=== PATIENT | female | born 1970 | race Caucasian/White ===

== ENCOUNTER → 2016-09-14 | Outpatient (CLI) | payer MEDICAID ==
--- NOTE | 2016-09-15 09:40 | MM ---
Reason for exam: screening (asymptomatic). Last mammogram was performed 1 year and 1 month ago. History: Took hormonal contraceptives for 4 years beginning at age 19. Physical Findings: A clinical breast exam by your physician is recommended on an annual basis and results should be correlated with mammographic findings. MG 3D Screening Mammo W/Cad Bilateral CC and MLO view(s) were taken. Prior study comparison: August 15, 2015, bilateral MG 3d screening mammo w/cad. April 18, 2014, bilateral MG diagnostic mammo w CAD ANDREIA. There are scattered fibroglandular densities. There is no discrete abnormality. ASSESSMENT: Negative, BI-RAD 1 RECOMMENDATION: Routine screening mammogram of both breasts in 1 year. Manage patient on a clinical basis. (Breast pain)
== END | disposition home or self-care (01) ==
LOC: RADMAMWWP 06:53
PROVIDERS: ATTEND Obstetrics & Gynecology
DX: Z12.31 Encounter for screening mammogram for malignant neoplasm of breast (principal)
CPT/HCPCS: 77063; G0202

== ENCOUNTER → 2017-06-04 | Outpatient (CLI) | payer MEDICAID ==
--- NOTE | 2017-06-04 11:41 | US ---
EXAMINATION TYPE: US transvaginal DATE OF EXAM: 06/04/2017 COMPARISON: CT abdomen and pelvis September 02, 2013. Pelvic ultrasound December 27, 2012 CLINICAL HISTORY: Pelvic Pain R10.2. Pt states pelvic pain and cramping. h/o ablation 7 yrs. ago TECHNIQUE: Transvaginal (TV). Date of LMP: 7 yrs ago EXAM MEASUREMENTS: Uterus: 7.8 x 3.7 x 5.2 cm Endometrial Stripe: 0.3 cm Right Ovary: 1.8 x 1.3 x 1.3 cm Left Ovary: 2.3 x 1.3 x 1.5 cm 1. Uterus: Anteverted Heterogeneous 2. Endometrium: Ill-defined borders due to ablation, appeared wnl 3. Right Ovary: wnl 4. Left Ovary: Small, echogenic lesion= 0.6 cm 5. Bilateral Adnexa: wnl 6. Posterior cul-de-sac: wnl Heterogeneous uterus is redemonstrated. Endometrium is atrophic with tiny amount of fluid noted in th e endometrial canal at cervical level. No free fluid is seen in pelvic cul-de-sac. Both ovaries are i dentified without suspicious adnexal lesion seen currently. IMPRESSION: No suspicious finding is seen to account for patient's symptoms.
== END ==
LOC: RADUSWWP 08:17
PROVIDERS: ATTEND Obstetrics & Gynecology
DX: R10.2 Pelvic and perineal pain (principal)
CPT/HCPCS: 76830

== ENCOUNTER → 2017-08-27 | Outpatient (CLI) | payer MEDICAID ==
--- NOTE | 2017-08-27 11:10 | MM ---
Reason for exam: clinical finding. Last mammogram was performed 11 months ago. History: Took hormonal contraceptives for 4 years beginning at age 19. Physical Findings: Nurse did not find any significant physical abnormalities on exam. MG 3D Diag Mammo W/Cad ANDREIA Bilateral CC and MLO view(s) were taken. Prior study comparison: September 14, 2016, bilateral MG 3d screening mammo w/cad. August 15, 2015, bilateral MG 3d screening mammo w/cad. There are scattered fibroglandular densities. There are benign appearing stable round oval circumscribed right upper outer quadrant masses. No suspicious abnormality. No significant new findings when compared with previous films. These results were verbally communicated with the patient and result sheet given to the patient on 08/27/17. ASSESSMENT: Benign, BI-RAD 2 RECOMMENDATION: Routine screening mammogram of both breasts in 1 year. Manage on a clinical basis with regard to left breast discomfort.
== END | disposition home or self-care (01) ==
LOC: RADMAMWWP 09:37
PROVIDERS: ATTEND Obstetrics & Gynecology
DX: N63.10 Unspecified lump in the right breast, unspecified quadrant (principal); N63.20 Unspecified lump in the left breast, unspecified quadrant
CPT/HCPCS: 77062; 77066

== ENCOUNTER → 2017-09-09 | Outpatient (CLI) | payer MEDICAID ==
[2017-09-09 14:28] VITALS: BP 126/78; PULSE 87; BMI 32.2
--- NOTE | 2017-09-09 15:00 | P.GSHP ---
History of Present Illness H&P Date: 09/09/17 Chief Complaint: Patient notes of firmness under her left breast The patient is a 47-year-old white female who approximately a month ago noted some nodularity under the left breast. She had a bilateral mammogram performed [id number]. This was felt to be benign with bilateral screening recommended in 1 year. The patient has not had any trauma to her breast. She has no pain in her breast. She has no nipple discharges or skin changes of concern Family History: 1. father: Esophageal cancer 2. Maternal grandmother: Colon cancer Surgical history: 1. Tubal ligation 2. Uterine ablation Medical history: Negative Hormonal history: Menarche: 8 Pregnancies: 2, 2 live births, first at 21, breast fed: yes periods stopped at 40 with uterine ablation hormones: none BCP: 2 years Social history: Smoke: Negative Alcohol: Negative Drugs: Negative - Constitutional Constitutional: Reports sweats - EENT Comment: start of glaucoma, at times difficulty with swallowing, following with DR. Reaves Eyes: denies decreased vision (wears glasses), denies pain Ears: deny: decreased hearing, tinnitus Ears, nose, mouth and throat: Denies headache, Denies sore throat - Cardiovascular Cardiovascular: Denies chest pain, Denies shortness of breath - Respiratory Respiratory: Denies cough, Denies 7 - Gastrointestinal Comment: at times difficulty swallowing Gastrointestinal: Denies abdominal pain, Denies diarrhea, Denies nausea, Denies vomiting - Genitourinary (Female) Genitourinary: Reports kidney stones - Menstruation Comment: no periods since ablation - Genitourinary (Male) Genitourinary: Denies dysuria, Denies hematuria - Musculoskeletal Musculoskeletal: Denies myalgias - Integumentary Comment: Itches under her left breast Integumentary: Reports pruritus, Denies rash - Neurological Neurological: Denies numbness, Denies weakness - Psychiatric Psychiatric: Reports anxiety, Denies depression - Endocrine Endocrine: Denies fatigue, Denies weight change - Hematologic/Lymphatic Comment: none - Allergic/Immunologic Allergic/Immunologic: Reports seasonal allergies Past Medical History Additional Past Medical History / Comment(s): diverticulitis, ovarian cyst History of Any Multi-Drug Resistant Organisms: None Reported Past Surgical History: Tubal Ligation, Uterine Ablation Past Psychological History: No Psychological Hx Reported Smoking Status: Never smoker Past Alcohol Use History: None Reported Past Drug Use History: None Reported Medications and Allergies Home Medications Medication Instructions Recorded Confirmed Type B Infantis/B Ani/B Gordon/B Bifid 1 each PO DAILY 09/01/13 09/09/17 History [Probiotic 4X Caplet] Cholecalciferol [Vitamin D3] 1,000 tab PO DAILY 09/01/13 09/09/17 History traMADol HCl [Ultram] 50 mg PO Q6H PRN #20 tab 09/02/13 09/09/17 Rx ALPRAZolam [Xanax] 0.5 tab PO DIRECTED 09/09/17 09/09/17 History Allergies Allergy/AdvReac Type Severity Reaction Status Date / Time amoxicillin [Amoxicillin] Allergy Rash/Hives Verified 09/01/13 22:10 Surgical - Exam Vital Signs Pulse BP 87 126/78 09/09/17 14:23 09/09/17 14:23 - General well developed, well nourished, no distress - Eyes normal ocular movement, no icteric - ENT no hearing loss, no congestion - Neck no masses, trachea midline - Respiratory normal respiratory effort, clear to auscultation - Cardiovascular Rhythm: regular Heart Sounds: normal: S1, S2 - Abdomen Abdomen: soft, non tender, no guarding, no rigid, no rebound - Integumentary no rash - Neurologic no disoriented, no combative - Musculoskeletal normal gait, normal posture - Psychiatric oriented to time, oriented to person, oriented to place, speech is normal, memory intact Breast examination: Right breast: Multiple positional exam no dominant masses or nodules of concern Right axilla: No adenopathy of concern Left breast: Multiple positional exam fibrocystic changes, an area of increased nodularity approximately 1 x 1 cm in size at the 5 o'clock position of the inferior aspect of the breast, this was not seen on mammogram Left axilla: No adenopathy of concern Results mammogram reviewed Assessment and Plan Assessment: Impression/plan: 1. Bilateral mammogram 87473 BIRADS 2 repeat screening mammogram of both breasts in 1 year 2. Palpable abnormality left breast 5 to 6 o'clock position in the inferior aspect Plan: 1. FNA of palpable abnormality in the left breast 2. Further recommendation following results of the FNA Cc: Dr. Mari, Dr. Reaves
--- NOTE | 2017-09-09 15:05 | P.PCN ---
Date of Procedure: 09/09/17 Preoperative Diagnosis: palpable abnormality Postoperative Diagnosis: same Procedure(s) Performed: FNA left breast lesion at 5 OClock Anesthesia: none Pathology: other Condition: stable Indications for Procedure: Palpable abnormality 5:00 region of the left breast Description of Procedure: The area of concern in the left breast was prepped using alcohol. A 22-gauge needle was passed into the lesion on a 5 mL syringe. Multiple passes were made and tissue was obtained. The contents were processed on a slide which was sent to pathology. The patient tolerated the procedure in stable condition. Depending on results of pathology further recommendation to follow. Cc: Dr. Mari, Dr. Morel
--- NOTE | 2017-09-16 16:13 | P.PN ---
Subjective Progress Note Date: 09/16/17 The patient is a 47-year-old white female who comes in status post FNA of an area of concern in the left breast. The area on FNA is nondiagnostic. It is most likely consistent with a lipoma. I discussed with the patient that the options include an ultrasound of the area with possible ultrasound for biopsy or excision in the operating room. The patient does not wish to undergo ultrasound and a repeat percutaneous biopsy as the area is palpable and she just wishes it to be excised. Physical examination Heart: Regular rate and rhythm Lungs: Clear Breast: Mild ecchymosis at site of FNA, persistent palpable abnormality approximately 1 x 1 cm in size the inferior aspect proximally 5:00 of the left breast this most likely represents a lipomatous lesion Impression/plan: 1. Palpable abnormality left breast 2. FNA nondiagnostic 3. Option of ultrasound-guided core biopsy discussed with the patient which she does not wish at this time 4. Patient wishes excisional biopsy of area of concern in the left breast I discussed that this is most likely benign a lipoma however the patient wishes it to be excised as it is palpable and change in her opinion Risks and benefits of the procedure have been discussed with the patient and she wishes to proceed CC: Jelly Objective - Vital Signs Vital signs: Vital Signs Temp Pulse 87 09/09/17 14:23 Resp BP 126/78 09/09/17 14:23 Pulse Ox
== END | disposition home or self-care (01) ==
LOC: WWCWWP 13:56
PROVIDERS: ATTEND Surgery
DX: N63.20 Unspecified lump in the left breast, unspecified quadrant (principal)
CPT/HCPCS: 88173

== ENCOUNTER → 2017-09-16 | Outpatient (CLI) | payer MEDICAID ==
[2017-09-16 15:54] VITALS: BP 122/84; PULSE 85; TEMP 98; BMI 32.1
== END | disposition home or self-care (01) ==
LOC: WWCWWP 15:15
PROVIDERS: ATTEND Surgery
DX: Z53.9 Procedure and treatment not carried out, unspecified reason (principal)

== ENCOUNTER → 2017-09-27 | Outpatient (CLI) | payer MEDICAID ==
--- NOTE | 2017-09-27 10:43 | FL ---
EXAMINATION TYPE: FL barium swallow DATE OF EXAM: 09/27/2017 CLINICAL HISTORY: Difficulty swallowing liquids and solids for 2 months. Family history of esophageal carcinoma. TECHNIQUE: A double contrast esophagram is performed utilizing air and barium. A total of 1 minute and 55 seconds of fluoroscopic time was utilized during procedure. 41 fluoroscopic images were saved. COMPARISON: None FINDINGS: Just distal to the patient's described globus sensation there is a persistent focal narrowi ng (short segment but smooth bordered) of the upper thoracic esophagus beginning above the level aort ic arch and extending to the level of the aortic arch. This is nonobstructive with no proximal esopha geal dilatation. Otherwise the esophagus has normal motility. There is a small hiatal hernia noted. P ersistent mild vallecular retention of contrast is also seen throughout the exam expelled with a seco nd swallow. No aspiration. No significant gastroesophageal reflux. IMPRESSION: 1. Focal upper thoracic esophageal nonobstructive persistent mild stricture that is short segment but smooth. Although there are no abrupt borders to suggest esophageal mass given this patient's family history of esophageal carcinoma and no gastroesophageal reflux endoscopy is recommended for direct vi sualization. 2. Small hiatal hernia. 3. Persistent mild vallecular retention expelled after a second dry swallow just above the patient's globus sensation.
== END | disposition home or self-care (01) ==
LOC: RADFLWHC 09:32
PROVIDERS: ATTEND Family Medicine
DX: K44.9 Diaphragmatic hernia without obstruction or gangrene (principal); K22.2 Esophageal obstruction; J38.7 Other diseases of larynx; Z88.0 Allergy status to penicillin
CPT/HCPCS: 74220

== ENCOUNTER → 2017-10-08 | Outpatient (CLI) | payer MEDICAID ==
[2017-10-08 08:17] LABS: Basophils # (A) 0.1 k/uL (0-0.2); Basophils % (A) 1 %; Eosinophils # (A) 0.1 k/uL (0-0.7); Eosinophils % (A) 1 %; HCT 42.6 % (34.0-46.0); Lymphocytes # (A) 2.4 k/uL (1.0-4.8); Lymphocytes % (A) 32 %; MCH 27.7 pg (25.0-35.0); MCHC 30.6 g/dL (31.0-37.0); MCV 90.5 fL (80.0-100.0); Mean Platelet Volume 6.3; Monocytes # (A) 0.4 k/uL (0-1.0); Monocytes % (A) 5 %; Neutrophils # (A) 4.4 k/uL (1.3-7.7); Neutrophils % (A) 59 %; Platelet Count 286 k/uL (150-450); RBC 4.71 m/uL (3.80-5.40); WBC 7.4 k/uL (3.8-10.6)
[2017-10-08 08:35] LABS: ALT 31 U/L (9-52); AST 26 U/L (14-36); Albumin 4.3 g/dL (3.5-5.0); Alkaline Phosphatase 64 U/L (38-126); Anion Gap 7 mmol/L; Blood Urea Nitrogen 17 mg/dL (7-17); Calcium 10.2 mg/dL (8.4-10.2); Carbon Dioxide 29 mmol/L (22-30); Chloride 108 mmol/L (98-107); Glucose 92 mg/dL (74-99); Potassium 5.6 mmol/L (3.5-5.1); Sodium 144 mmol/L (137-145); Total Bilirubin 0.6 mg/dL (0.2-1.3); Total Protein 7.4 g/dL (6.3-8.2)
[2017-10-08 08:54] LABS: Cholesterol 183 mg/dL (<200); HDL Cholesterol 62 mg/dL (40-60); LDL Cholesterol,Calculated 105 mg/dL (0-99); Triglycerides 78 mg/dL (<150)
== END | disposition home or self-care (01) ==
LOC: LABWHC1 07:05
PROVIDERS: ATTEND Nurse Practitioner Women's Health
DX: R53.83 Other fatigue (principal); Z83.6 Family history of other diseases of the respiratory system
CPT/HCPCS: 36415; 80053; 80061; 84439; 84443; 85025

== ENCOUNTER → 2018-11-03 | Outpatient (CLI) | payer MEDICAID ==
--- NOTE | 2018-11-04 11:31 | MM ---
Reason for exam: screening (asymptomatic). Last mammogram was performed 1 year and 2 months ago. History: Excisional biopsy of the left breast. Took hormonal contraceptives for 4 years beginning at age 19. Physical Findings: A clinical breast exam by your physician is recommended on an annual basis and results should be correlated with mammographic findings. MG 3D Screening Mammo W/Cad Bilateral CC and MLO view(s) were taken. Prior study comparison: August 27, 2017, bilateral MG 3d diag mammo w/cad ANDREIA. September 14, 2016, bilateral MG 3d screening mammo w/cad. There are scattered fibroglandular densities. There is no discrete abnormality. No significant changes when compared with prior studies. ASSESSMENT: Negative, BI-RAD 1 RECOMMENDATION: Routine screening mammogram of both breasts in 1 year.
--- NOTE | 2018-11-04 18:40 | BD ---
EXAMINATION TYPE: Axial Bone Density DATE OF EXAM: 11/03/2018 COMPARISON: NONE CLINICAL HISTORY: Height: 5 FT 2 3/4 IN Weight: 189 FRAX RISK QUESTIONS: Secondary Osteoporosis: RISK FACTORS HISTORY OF: Active: YES MEDICATIONS: Additional Medications: NONE Additional History: EXAM MEASUREMENTS: Bone mineral densitometry was performed using the [employer] System. Bone mineral density as measured about the Lumbar spine is: ----- L1-L4(G/cm2): 1.336 T Score Values are as follows: ----- L2: 1.0 ----- L3: 1.0 ----- L4: 1.7 ----- L1-L4: 1.3 BASELINE Bone mineral density about the R hip (g/cm2): 0.939 Bone mineral density about the L hip (g/cm2): 0.951 T Score values are as follows: -----R Neck: -0.7 -----L Neck: -0.6 -----R Total: 0.7 -----L Total: 0.7 BASELINE IMPRESSION: Normal (Values between +1 and -1 indicate normal bone mass). Consider repeating this study in 5 year s or sooner if there is some new clinical indication. NOTE: T-SCORE=SD OF THE YOUNG ADULT MEAN.
== END | disposition home or self-care (01) ==
LOC: RADMAMWWP 07:39
PROVIDERS: ATTEND Obstetrics & Gynecology
DX: Z12.31 Encounter for screening mammogram for malignant neoplasm of breast (principal); Z13.820 Encounter for screening for osteoporosis
CPT/HCPCS: 77063; 77067; 77080

== ENCOUNTER → 2019-04-21 | Day surgery (SDC) | payer MEDICAID ==
[2019-04-19 10:25] VITALS: BMI 33.1
[~2019-04-21] MED LIST: LACTATED RINGERS 1,000 ML IV SCH; LIDOCAINE 1% (10MG/ML) FOR IV START INTRADERMA PRN; LIDOCAINE 1% INJ 10MG/ML (20 ML MDV) ONE; PROPOFOL 10 MG/ML 20 ML VIAL IV ONE
[2019-04-21 09:08] VITALS: TEMP 97.1
--- NOTE | 2019-04-21 09:24 | P.GSHP ---
History of Present Illness H&P Date: 04/21/19 Chief Complaint: Colon cancer screening Patient here today for colonoscopy. No colonoscopy previously. Family history of colon cancer in her grandmother. Mother may have had polyps. No bowel related complaints. Past Medical History Additional Past Medical History / Comment(s): diverticulitis, ovarian cyst History of Any Multi-Drug Resistant Organisms: None Reported Past Surgical History: Tubal Ligation, Uterine Ablation Past Anesthesia/Blood Transfusion Reactions: Motion Sickness Smoking Status: Never smoker - Past Family History Father Family Medical History: Cancer Additional Family Medical History / Comment(s): esophageal cancer Mother Family Medical History: No Reported History Additional Family Medical History / Comment(s): maternal grandma colon cancer Medications and Allergies Home Medications Medication Instructions Recorded Confirmed Type Ascorbic Acid/Ascorbate Sodium 250 mg PO DAILY 04/19/19 04/21/19 History [Vitamin C 250 mg Tablet Chew] Cholecalciferol [Vitamin D3 (25 1,000 unit PO DAILY 04/19/19 04/21/19 History Mcg = 1000 Iu)] Allergies Allergy/AdvReac Type Severity Reaction Status Date / Time amoxicillin [Amoxicillin] Allergy Rash/Hives Verified 04/21/19 08:54 Surgical - Exam Vital Signs Temp Pulse Resp BP Pulse Ox 97.1 F L 110 H 16 142/94 97 04/21/19 09:07 04/21/19 09:07 04/21/19 09:07 04/21/19 09:07 04/21/19 09:07 Physical exam: General: Well-developed, well-nourished HEENT: Normocephalic, sclerae nonicteric Abdomen: Nontender, nondistended Extremities: No edema Neuro: Alert and oriented Assessment and Plan (1) Colon cancer screening Narrative/Plan: Will proceed with colonoscopy at this time Current Visit: Yes Status: Acute Code(s): Z12.11 - ENCOUNTER FOR SCREENING FOR MALIGNANT NEOPLASM OF COLON SNOMED Code(s): 103885448
--- NOTE | 2019-04-21 09:44 | P.PCN ---
Date of Procedure: 04/21/19 Procedure(s) Performed: PREOPERATIVE DIAGNOSIS: Colon cancer screening POSTOPERATIVE DIAGNOSIS: Diverticulosis PROCEDURE: Colonoscopy ANESTHESIA: MAC SURGEON: Vic Feliciano M.D. SPECIMENS: none ENDOSCOPIC PROCEDURE: The patient was placed on the endoscopy table in the left decubitus position. The Olympus colonoscope was inserted into the anus and passed under direct visualization to the base of the cecum. The appendiceal orifice was visualized. From that point the scope was slowly withdrawn inspe cting all surfaces carefully. There were no neoplastic inflammatory or polypoid lesions throughout the cecum, ascending, transverse, descending, sigmoid and rectum. There was moderate left-sided diverticulosis noted. Digital rectal examination was normal. The patient was taken to the recovery room in stable condition per anesthesia guidelines. RECOMMENDATIONS: Increase fiber. Follow colonoscopy 10 years.
[2019-04-21 09:55] VITALS: BP 128/87; PULSE 81; RESP 17
== END ==
LOC: ORWHC2ENDO 08:38
PROVIDERS: ATTEND Surgery
DX: Z12.11 Encounter for screening for malignant neoplasm of colon (principal); K57.30 Diverticulosis of large intestine without perforation or abscess without bleeding; Z80.0 Family history of malignant neoplasm of digestive organs; N83.209 Unspecified ovarian cyst, unspecified side; Z98.51 Tubal ligation status; Z88.0 Allergy status to penicillin
CPT/HCPCS: 81025; J2001; J2704; G0105

== ENCOUNTER → 2019-08-23 | Outpatient (CLI) | payer MEDICAID | END | disposition home or self-care (01) | LOC: LABWHC1 14:08 | PROVIDERS: ATTEND Obstetrics & Gynecology | DX: Z20.828 Contact with and (suspected) exposure to other viral communicable diseases (principal) | CPT/HCPCS: 86769; 36415; U0003 ==

== ENCOUNTER → 2020-01-18 | Outpatient (CLI) | payer MEDICAID ==
--- NOTE | 2020-01-19 10:39 | MM ---
Reason for exam: screening (asymptomatic). Last mammogram was performed 1 year and 2 months ago. History: Excisional biopsy of the left breast. Took hormonal contraceptives for 4 years beginning at age 19. Physical Findings: A clinical breast exam by your physician is recommended on an annual basis and results should be correlated with mammographic findings. MG 3D Screening Mammo W/Cad Bilateral CC and MLO view(s) were taken. Prior study comparison: November 03, 2018, bilateral MG 3d screening mammo w/cad. August 27, 2017, bilateral MG 3d diag mammo w/cad ANDREIA. There are scattered fibroglandular densities. There is chronic nodularity in the right breast. No significant changes when compared with prior studies. ASSESSMENT: Negative, BI-RAD 1 RECOMMENDATION: Routine screening mammogram of both breasts in 1 year.
== END | disposition home or self-care (01) ==
LOC: RADMAMWWP 08:00
PROVIDERS: ATTEND Obstetrics & Gynecology
DX: Z12.31 Encounter for screening mammogram for malignant neoplasm of breast (principal)
CPT/HCPCS: 77063; 77067

== ENCOUNTER → 2021-02-05 | Outpatient (CLI) | payer MEDICAID ==
--- NOTE | 2021-02-10 12:41 | MM ---
Reason for exam: screening (asymptomatic). Last mammogram was performed 1 year and 1 month ago. History: Patient is postmenopausal. Excisional biopsy of the left breast. Took hormonal contraceptives for 4 years beginning at age 19. Physical Findings: A clinical breast exam by your physician is recommended on an annual basis and results should be correlated with mammographic findings. MG 3D Screening Mammo W/Cad Bilateral CC and MLO view(s) were taken. Prior study comparison: January 18, 2020, bilateral MG 3d screening mammo w/cad. November 03, 2018, bilateral MG 3d screening mammo w/cad. There are scattered fibroglandular densities. No significant changes when compared with prior studies. ASSESSMENT: Benign, BI-RAD 2 RECOMMENDATION: Routine screening mammogram of both breasts in 1 year.
== END | disposition home or self-care (01) ==
LOC: RADMAMWWP 08:53
PROVIDERS: ATTEND Obstetrics & Gynecology
DX: Z12.31 Encounter for screening mammogram for malignant neoplasm of breast (principal); Z78.0 Asymptomatic menopausal state
CPT/HCPCS: 77063; 77067

== ENCOUNTER 2021-07-26 13:48 | Emergency (ER) | payer MEDICAID ==
[2021-07-26] MEDS ORDERED: ONDANSETRON 4 MG/2 ML VIAL IVP STA (14:47)
[2021-07-26] MEDS ORDERED: KETOROLAC 15 MG/ML 1 ML VIAL IVP STA (14:47)
[2021-07-26] MEDS ORDERED: SODIUM CHLORIDE 0.9% 1,000 ML IV STA (14:47)
--- NOTE | 2021-07-26 15:00 | ED ---
Abdominal Pain HPI - General Chief Complaint: Abdominal Pain Stated Complaint: left side pain Time Seen by Provider: 07/26/21 14:28 Source: patient, family, RN notes reviewed Mode of arrival: ambulatory Limitations: no limitations - History of Present Illness Initial Comments: This is a 51-year-old female who presents to the emergency department with abd ominal pain. Pain began 2 days ago. States that this is in the left lower quadrant and wrapping around to the back. She has a history of a left ovarian cyst and kidney stones. Also notes a decreased appetite and nausea. She had a colonoscopy with Dr. Feliciano in 2019, revealing diverticulosis and no other abnormalities. She was advised to follow up in 10 years. To her knowledge, she has never had an episode of diverticulitis. She has not taken anything for the pain. Denies any fevers, chills, sore throat, cough, dyspnea, chest pain, palpitations, diarrhea, back pain, or headaches. MD Complaint: abdominal pain Onset/Timin -: days(s) Location: LLQ Radiation: other (left lower back) - Related Data Previous Rx's Medication Instructions Recorded Ciprofloxacin HCl 500 mg PO BID 10 Days #20 tablet 07/26/21 HYDROcodone/APAP 5-325MG [[place] 1 tab PO Q6HR PRN 3 Days #12 tab 07/26/21 5-325] Ondansetron Odt [Zofran Odt] 4 mg PO Q8HR PRN #15 tab 07/26/21 metroNIDAZOLE [Flagyl] 500 mg PO TID 10 Days #30 tab 07/26/21 Allergies Allergy/AdvReac Type Severity Reaction Status Date / Time amoxicillin [Amoxicillin] Allergy Rash/Hives Verified 07/26/21 17:03 on entire body Review of Systems ROS Statement: Those systems with pertinent positive or pertinent negative responses have been documented in the HPI. ROS Other: All systems not noted in ROS Statement are negative. Past Medical History Additional Past Medical History / Comment(s): diverticulitis, ovarian cyst History of Any Multi-Drug Resistant Organisms: None Reported Past Surgical History: Tubal Ligation, Uterine Ablation Past Anesthesia/Blood Transfusion Reactions: Motion Sickness Past Psychological History: Anxiety Smoking Status: Never smoker Past Alcohol Use History: None Reported Past Drug Use History: None Reported - Past Family History Father Family Medical History: Cancer Additional Family Medical History / Comment(s): esophageal cancer Mother Family Medical History: No Reported History Additional Family Medical History / Comment(s): maternal grandma colon cancer General Exam Limitations: no limitations General appearance: alert, in no apparent distress Head exam: Present: atraumatic, normocephalic, normal inspection Respiratory exam: Present: normal lung sounds bilaterally. Absent: respiratory distress, wheezes, rales, rhonchi, stridor Cardiovascular Exam: Present: regular rate, normal rhythm, normal heart sounds. Absent: systolic murmur, diastolic murmur, rubs, gallop, clicks GI/Abdominal exam: Present: soft, tenderness (LLQ), normal bowel sounds. Absent: distended, guarding, rebound, rigid Neurological exam: Present: alert, oriented X3, CN II-XII intact Psychiatric exam: Present: normal affect, normal mood Skin exam: Present: warm, dry, intact, normal color. Absent: rash Course Vital Signs 07/26/21 14:23 Temperature 98.1 F Pulse Rate 98 Respiratory 16 Rate Blood Pressure 135/84 O2 Sat by Pulse 99 Oximetry Medical Decision Making - Medical Decision Making This is a 51-year-old female who presents to the emergency department for left lower quadrant pain. Lab work reveals an elevated white blood cell count. Computed tomography scan of abdomen and pelvis reveals colitis with possible superimposed diverticulitis. Given the patient's presentation, will treat the patient for diverticulitis with Flagyl and Cipro for 10 days. Prescription for Zofran provided for any nausea and [place] provided for the pain. Advised to use the [place] sparingly when the pain is the most severe and to otherwise alternate with Tylenol and ibuprofen. Stressed the importance of establishing with a new primary care provider and following up with Dr. Feliciano in the event a new colonoscopy is needed. Advised to remain well-hydrated and slowly advance her diet as tolerated. Also advised increasing fiber intake and avoiding constipation, which may cause additional flareups in the future. Of note, patient's pharmacy was closed at the time of discharge. She'll be given an initial dose of Cipro and Flagyl the emergency department. Starter pack for Zofran and Tylenol #3 provided as well. She'll plan to order picker the prescriptions in the morning. Return precautions reviewed in depth, the patient is instructed to return to the emergency department with any new, worsening, or concerning symptoms. Patient verbalized understanding. This case was discussed in detail with the attending ED physician. Presentation, findings, and treatment plan discussed in detail as well. - Lab Data Result diagrams: 07/26/21 14:55 07/26/21 14:55 Lab Results 07/26/21 07/26/21 07/26/21 Range/Units 14:55 14:55 14:55 WBC 13.3 H (3.8-10.6) k/uL RBC 4.61 (3.80-5.40) m/uL Hgb 13.3 (11.4-16.0) gm/dL Hct 43.0 (34.0-46.0) % MCV 93.3 (80.0-100.0) fL MCH 28.9 (25.0-35.0) pg MCHC 31.0 (31.0-37.0) g/dL RDW 12.7 (11.5-15.5) % Plt Count 336 (150-450) k/uL MPV 7.1 Neutrophils % 70 % Lymphocytes % 22 % Monocytes % 5 % Eosinophils % 1 % Basophils % 1 % Neutrophils # 9.3 H (1.3-7.7) k/uL Lymphocytes # 3.0 (1.0-4.8) k/uL Monocytes # 0.7 (0-1.0) k/uL Eosinophils # 0.1 (0-0.7) k/uL Basophils # 0.1 (0-0.2) k/uL Sodium (137-145) mmol/L Potassium (3.5-5.1) mmol/L Chloride (98-107) mmol/L Carbon Dioxide (22-30) mmol/L Anion Gap mmol/L BUN (7-17) mg/dL Creatinine (0.52-1.04) mg/dL Est GFR (CKD-EPI)AfAm (>60 ml/min/1.73 sqM) Est GFR (CKD-EPI)NonAf (>60 ml/min/1.73 sqM) Glucose (74-99) mg/dL Calcium (8.4-10.2) mg/dL Total Bilirubin (0.2-1.3) mg/dL AST (14-36) U/L ALT (4-34) U/L Alkaline Phosphatase (38-126) U/L Troponin I (0.000-0.034) ng/mL Total Protein (6.3-8.2) g/dL Albumin (3.5-5.0) g/dL Amylase (30-110) U/L Lipase (23-300) U/L Urine Color Yellow Urine Appearance Clear (Clear) Urine pH 5.5 (5.0-8.0) Ur Specific [place] 1.021 (1.001-1.035) Urine Protein Negative (Negative) Urine Glucose (UA) Negative (Negative) Urine Ketones Negative (Negative) Urine Blood Trace H (Negative) Urine Nitrite Negative (Negative) Urine Bilirubin Negative (Negative) Urine Urobilinogen <2.0 (<2.0) mg/dL Ur Leukocyte Esterase Small H (Negative) Urine RBC 1 (0-5) /hpf Urine WBC 4 (0-5) /hpf Ur Squamous Epith Cells 2 (0-4) /hpf Urine Bacteria Rare H (None) /hpf Urine Mucus Occasional H (None) /hpf Urine HCG, Qual Not Detected (Not Detectd) 07/26/21 07/26/21 Range/Units 14:55 14:55 WBC (3.8-10.6) k/uL RBC (3.80-5.40) m/uL Hgb (11.4-16.0) gm/dL Hct (34.0-46.0) % MCV (80.0-100.0) fL MCH (25.0-35.0) pg MCHC (31.0-37.0) g/dL RDW (11.5-15.5) % Plt Count (150-450) k/uL MPV Neutrophils % % Lymphocytes % % Monocytes % % Eosinophils % % Basophils % % Neutrophils # (1.3-7.7) k/uL Lymphocytes # (1.0-4.8) k/uL Monocytes # (0-1.0) k/uL Eosinophils # (0-0.7) k/uL Basophils # (0-0.2) k/uL Sodium 141 (137-145) mmol/L Potassium 4.3 (3.5-5.1) mmol/L Chloride 106 (98-107) mmol/L Carbon Dioxide 26 (22-30) mmol/L Anion Gap 9 mmol/L BUN 17 (7-17) mg/dL Creatinine 0.77 (0.52-1.04) mg/dL Est GFR (CKD-EPI)AfAm >90 (>60 ml/min/1.73 sqM) Est GFR (CKD-EPI)NonAf 88 (>60 ml/min/1.73 sqM) Glucose 101 H (74-99) mg/dL Calcium 9.4 (8.4-10.2) mg/dL Total Bilirubin 0.6 (0.2-1.3) mg/dL AST 28 (14-36) U/L ALT 25 (4-34) U/L Alkaline Phosphatase 66 (38-126) U/L Troponin I <0.012 (0.000-0.034) ng/mL Total Protein 8.0 (6.3-8.2) g/dL Albumin 4.7 (3.5-5.0) g/dL Amylase 53 (30-110) U/L Lipase 41 (23-300) U/L Urine Color Urine Appearance (Clear) Urine pH (5.0-8.0) Ur Specific [place] (1.001-1.035) Urine Protein (Negative) Urine Glucose (UA) (Negative) Urine Ketones (Negative) Urine Blood (Negative) Urine Nitrite (Negative) Urine Bilirubin (Negative) Urine Urobilinogen (<2.0) mg/dL Ur Leukocyte Esterase (Negative) Urine RBC (0-5) /hpf Urine WBC (0-5) /hpf Ur Squamous Epith Cells (0-4) /hpf Urine Bacteria (None) /hpf Urine Mucus (None) /hpf Urine HCG, Qual (Not Detectd) - EKG Data EKG Comments: Sinus rhythm. Ventricular rate 85 bpm, UT interval 171 ms, QRS duration 97 ms, QTC 404 ms. - Radiology Data Radiology results: report reviewed, image reviewed Disposition Clinical Impression: Diverticulitis Disposition: HOME SELF-CARE Instructions (If sedation given, give patient instructions): Diverticulitis (ED), Diverticulitis Diet (ED) Additional Instructions: Return to the emergency department with any new, worsening, or concerning symptoms. Take the antibiotics as prescribed for 10 days. Use the [place] sparingly when the pain is most severe and otherwise take ibuprofen and Tylenol. Follow-up with Dr. Feliciano if symptoms do not improve. Increase dietary fiber. Prescriptions: Ciprofloxacin HCl 500 mg PO BID 10 Days #20 tablet metroNIDAZOLE [Flagyl] 500 mg PO TID 10 Days #30 tab HYDROcodone/APAP 5-325MG [[place] 5-325] 1 tab PO Q6HR PRN 3 Days #12 tab PRN Reason: Pain Ondansetron Odt [Zofran Odt] 4 mg PO Q8HR PRN #15 tab PRN Reason: Nausea And Vomiting Is patient prescribed a controlled substance at d/c from ED?: Yes If prescribed controlled substance>3 days was MAPS reviewed?: Prescribed <3 Days Referrals: Eloy Reaves Jr, [Primary Care Provider] - 1-2 days
[2021-07-26 15:07] LABS: Basophils # (A) 0.1 k/uL (0-0.2); Basophils % (A) 1 %; Eosinophils # (A) 0.1 k/uL (0-0.7); Eosinophils % (A) 1 %; HGB 13.3 gm/dL (11.4-16.0); Lymphocytes % (A) 22 %; MCH 28.9 pg (25.0-35.0); MCV 93.3 fL (80.0-100.0); Mean Platelet Volume 7.1; Monocytes # (A) 0.7 k/uL (0-1.0); Monocytes % (A) 5 %; Neutrophils # (A) 9.3 k/uL (1.3-7.7); Neutrophils % (A) 70 %; Platelet Count 336 k/uL (150-450); RBC 4.61 m/uL (3.80-5.40); RDW 12.7 % (11.5-15.5); WBC 13.3 k/uL (3.8-10.6)
[2021-07-26 15:11] LABS: Appearance,Urine Clear (Clear); Bacteria,Urine Rare /hpf; Bilirubin,Urine Negative (Negative); Blood,Urine Trace (Negative); Color,Urine Yellow; Glucose,Urine (UA) Negative (Negative); Ketones,Urine Negative (Negative); Leukocyte Esterase,Urine Small (Negative); Mucus,Urine Occasional /hpf; Nitrite,Urine Negative (Negative); PH, Urine 5.5 (5.0-8.0); Protein,Urine Negative (Negative); RBC,Urine 1 /hpf (0-5); Specific Gravity,Urine 1.021 (1.001-1.035); Squamous Epithelial Cell,Urine 2 /hpf (0-4); Urobilinogen,Urine <2.0 mg/dL (<2.0); WBC,Urine 4 /hpf (0-5)
[2021-07-26 15:17] LABS: ALT 25 U/L (4-34); AST 28 U/L (14-36); African American GFR (CKD) >90 (>60 ml/min/1.73 sqM); Albumin 4.7 g/dL (3.5-5.0); Alkaline Phosphatase 66 U/L (38-126); Amylase 53 U/L (30-110); Anion Gap 9 mmol/L; Blood Urea Nitrogen 17 mg/dL (7-17); Calcium 9.4 mg/dL (8.4-10.2); Carbon Dioxide 26 mmol/L (22-30); Chloride 106 mmol/L (98-107); Glucose 101 mg/dL (74-99); Lipase 41 U/L (23-300); Non-African American GFR(CKD) 88 (>60 ml/min/1.73 sqM); Potassium 4.3 mmol/L (3.5-5.1); Sodium 141 mmol/L (137-145); Total Bilirubin 0.6 mg/dL (0.2-1.3)
--- NOTE | 2021-07-26 16:37 | CT ---
EXAMINATION TYPE: CT abdomen pelvis w con CT DLP: 1577.3 mGycm, Automated exposure control for dose reduction was used. DATE OF EXAM: 07/26/2021 4:01 PM COMPARISON: None CLINICAL INDICATION:Female, 51 years old with history of LLQ abdominal pain; Left lower quadrant abdo jett pain. TECHNIQUE: Standard CT of the abdomen and pelvis following the administration of 100 cc of Isovue 3 00 IV contrast material. Coronal and sagittal reformats were performed. FINDINGS: LOWER CHEST: Streaky atelectasis seen throughout the lung bases and right middle lobe. ABDOMEN LIVER: Diffusely hypoattenuating parenchyma. GALLBLADDER AND BILE DUCTS: Unremarkable. PANCREAS: Unremarkable. SPLEEN: Unremarkable. ADRENAL GLANDS: Unremarkable. KIDNEYS AND URETERS: No evidence of hydronephrosis or renal calculus. The ureters are unremarkable. PELVIS BLADDER: Unremarkable REPRODUCTIVE: Bilateral tubal ligation clips. ABDOMEN & PELVIS STOMACH AND BOWEL: Fat stranding changes are seen around the descending colon. There are multiple div erticula in this area. There are subcentimeter prominent nonenlarged lymph nodes also present. There is wall thickening of the colon with the edematous-appearing wall measuring up to 13 mm. Additional s cattered diverticula are seen throughout the colon. No evidence of bowel obstruction. The appendix is normal. Additional PERITONEUM: No evidence of pneumoperitoneum or free fluid. VASCULATURE: No evidence of aortic aneurysm. MUSCULOSKELETAL: No acute osseous abnormalities. LYMPH NODES: No gross evidence for lymphadenopathy. SOFT TISSUE/ABDOMINAL WALL: Unremarkable IMPRESSION: 1. Descending colon wall thickening with multiple diverticula. Findings suspicious for colitis with superimposed diverticulitis not entirely excluded. Colonoscopy is recommended after acute inflammatio n to exclude underlying malignancy. 2. Hepatic steatosis.
[2021-07-26] MEDS ORDERED: ONDANSETRON 4 MG ODT STARTER PACK 2 TAB BTL PO STA (17:11)
[2021-07-26] MEDS ORDERED: ACET/COD 300 MG/30 MG STARTER PACK 6 TAB BTL PO STA (17:11)
[2021-07-26] MEDS ORDERED: metroNIDAZOLE 500 MG TAB PO STA (17:11)
[2021-07-26] MEDS ORDERED: CIPROFLOXACIN HCL 500 MG TAB PO STA (17:11)
[2021-07-26] MEDS ORDERED: HYDROcodone/APAP 5-325MG 1 EACH TAB PO STA (17:11)
[2021-07-26 17:13] VITALS: BP 141/94; PULSE 79; RESP 18; TEMP 97.4
== END 2021-07-26 17:32 | disposition home or self-care (01) ==
LOC: EC 13:48
DX: K57.32 Diverticulitis of large intestine without perforation or abscess without bleeding (principal); Z88.0 Allergy status to penicillin
CPT/HCPCS: 36415; 93005; 80053; 82150; 83690; 84484; 85025; 81001; 81025; 74177; 99284; 96374; 96375; 96361; J2405; J1885; S0119; Q9967

== ENCOUNTER → 2021-12-24 | Outpatient (CLI) | payer MEDICAID ==
--- NOTE | 2021-12-24 08:20 | MM ---
Reason for Exam: Clinical finding. Last screening mammogram was performed 11 month(s) ago. Indicated Problems: Pain of both sides (Global) for 1 Year(s). Patient History: Menarche at age 9. First Full-Term at age 23. Postmenopausal. Hormonal Contraceptives for 4 years from age 19 until age 23. Excisional Biopsy on the Left side. Risk Values: Nicol 5 year model risk: 1.6%. NCI Lifetime model risk: 12.0%. Prior Study Comparison: 06/09/2005 Screening Mammogram, [facility]. 05/19/2013 Bilateral Screening Mammogram, [facility]. 04/18/2014 Bilateral Diagnostic Mammogram, [facility]. 04/18/2014 Bilateral Diagnostic Ultrasound, [facility]. 09/14/2016 Bilateral Screening Mammogram, [facility]. 08/27/2017 Bilateral Diagnostic Mammogram, [facility]. 11/03/2018 Bilateral Screening Mammogram, [facility]. 01/18/2020 Bilateral Screening Mammogram, [facility]. 02/05/2021 Bilateral Screening Mammogram, [facility]. Tissue Density: There are scattered fibroglandular densities. Findings: Analyzed By CAD. Benign-appearing bilateral axillary lymph nodes redemonstrated. No suspicious new mass or distortion in either breast. Overall Assessment: Benign, BI-RAD 2 Management: Screening Mammogram of both breasts in 1 year. Manage patient symptoms of bilateral breast pain on clinical basis. Results were given to the patient verbally at the time of exam. Electronically signed and approved by: Jamel Bauer M.D.
--- NOTE | 2021-12-24 09:03 | USB ---
Reason for Exam: Clinical finding. Patient History: Menarche at age 9. First Full-Term at age 23. Postmenopausal. Hormonal Contraceptives for 4 years from age 19 until age 23. Excisional Biopsy on the Left side. Risk Values: Nicol 5 year model risk: 1.6%. NCI Lifetime model risk: 12.0%. Prior Study Comparison: 11/03/2018 Bilateral Screening Mammogram, [facility]. 01/18/2020 Bilateral Screening Mammogram, [facility]. 02/05/2021 Bilateral Screening Mammogram, [facility]. Findings: The whole breast of both breasts, the axilla of both breasts and the retroareolar of both breasts were scanned. A complete US of all four quadrants of the breast and retro-areolar region were reviewed. No solid or cystic masses are identified.. Management: Screening Mammogram of both breasts in 1 year. Managed clinically patient's symptoms of bilateral breast pain. Return to routine follow-up. Results were given to the patient verbally at the time of exam. Electronically signed and approved by: Jamel Bauer M.D.
[2021-12-24 11:31] LABS: HCT 42.1 % (37.2-46.3); HGB 13.4 g/dL (12.0-15.0); MCH 28.5 pg (27.0-32.0); MCHC 31.8 g/dL (32.0-37.0); MCV 89.4 fL (80.0-97.0); Mean Platelet Volume 9.8 fL (9.5-12.2); NRBC Per 100 WBC 0 /100 WBCS (0.0-0.0); Platelet Count 358 X 10*3/uL (140-440); RBC 4.71 X 10*6/uL (4.10-5.20); RDW 13.2 % (11.5-14.5); WBC 8.19 X 10*3/uL (4.50-10.00)
[2021-12-24 11:32] LABS: ALT 23 U/L (8-44); AST 22 U/L (13-35); African American GFR (CKD) 84.6 (60.0-200.0); Albumin 4.8 g/dL (3.8-4.9); Albumin/Globulin Ratio 1.78 (1.60-3.17); Alkaline Phosphatase 63 U/L (41-126); BUN/Creat Ratio 15.67 Ratio (12.00-20.00); Blood Urea Nitrogen 14.1 mg/dL (9.0-27.0); Calcium 10.1 mg/dL (8.7-10.3); Carbon Dioxide 25.5 mmol/L (20.0-27.5); Chloride 107 mmol/L (96-109); Chol/HDL Ratio 3.33 Ratio; Follicle Stimulating Hormone 70.2 mIU/mL; Globulin 2.7 g/dL (1.6-3.3); Glucose 96 mg/dL (70-110); LDL Cholesterol,Calculated 107.2 mg/dL (0.0-131.0); Potassium 4.8 mmol/L (3.5-5.5); Sodium 144 mmol/L (135-145); Total Protein 7.5 g/dL (6.2-8.2); VLDL Calculation 18.72 mg/dL (5.00-40.00)
[2021-12-24 12:19] LABS: Estradiol 12.9 pg/mL; Luteinizing Hormone 35.4 mIU/mL
== END | disposition home or self-care (01) ==
LOC: RADMAMWWP 07:23
PROVIDERS: ATTEND Obstetrics & Gynecology
DX: N64.4 Mastodynia (principal); Z78.0 Asymptomatic menopausal state
CPT/HCPCS: 77062; 77066; 80053; 80061; 82306; 82670; 83001; 83002; 83036; 84439; 84443; 85027

== ENCOUNTER 2022-05-12 21:17 | Observation (INO) | payer MEDICAID ==
[2022-05-12] MEDS ORDERED: PANTOPRAZOLE 40 MG/10 ML VIAL IVP STA (22:06)
--- NOTE | 2022-05-12 22:07 | ED ---
General Adult HPI - General Chief complaint: Chest Pain Stated complaint: Chest Pain Time Seen by Provider: 05/12/22 21:31 Source: patient, RN notes reviewed, old records reviewed Mode of arrival: ambulatory Limitations: no limitations - History of Present Illness Initial comments: 51-year-old female presents with a chest pain for the past 4 days. Patient treated this to indigestion and had taken 2 doses of omeprazole with slight improvement. She did some upper chest tightness associated with this burning. No prior history of CAD. No abdominal pain. No vomiting. No fever. Family history of CAD. - Related Data Previous Rx's Medication Instructions Recorded Ciprofloxacin HCl 500 mg PO BID 10 Days #20 tablet 07/26/21 HYDROcodone/APAP 5-325MG [[place] 1 tab PO Q6HR PRN 3 Days #12 tab 07/26/21 5-325] Ondansetron Odt [Zofran Odt] 4 mg PO Q8HR PRN #15 tab 07/26/21 metroNIDAZOLE [Flagyl] 500 mg PO TID 10 Days #30 tab 07/26/21 Allergies Allergy/AdvReac Type Severity Reaction Status Date / Time amoxicillin [Amoxicillin] Allergy Rash/Hives Verified 05/12/22 21:21 on entire body Review of Systems ROS Statement: Those systems with pertinent positive or pertinent negative responses have been documented in the HPI. ROS Other: All systems not noted in ROS Statement are negative. Past Medical History Additional Past Medical History / Comment(s): diverticulitis, ovarian cyst History of Any Multi-Drug Resistant Organisms: None Reported Past Surgical History: Tubal Ligation, Uterine Ablation Past Anesthesia/Blood Transfusion Reactions: Motion Sickness Past Psychological History: Anxiety Smoking Status: Never smoker Past Alcohol Use History: None Reported Past Drug Use History: None Reported - Past Family History Father Family Medical History: Cancer Additional Family Medical History / Comment(s): esophageal cancer Mother Family Medical History: No Reported History Additional Family Medical History / Comment(s): maternal grandma colon cancer General Exam Limitations: no limitations General appearance: alert, in no apparent distress Head exam: Present: atraumatic, normocephalic Eye exam: Present: normal appearance, PERRL ENT exam: Present: normal exam Respiratory exam: Present: normal lung sounds bilaterally. Absent: respiratory distress, wheezes Cardiovascular Exam: Present: regular rate, normal rhythm GI/Abdominal exam: Present: soft. Absent: distended, tenderness, guarding, rebound Extremities exam: Present: normal inspection, normal capillary refill. Absent: calf tenderness Neurological exam: Present: alert, oriented X3, CN II-XII intact. Absent: motor sensory deficit Psychiatric exam: Present: normal affect, normal mood Skin exam: Present: warm, dry, intact. Absent: cyanosis, diaphoretic Course Vital Signs 05/12/22 05/12/22 05/13/22 21:18 23:00 00:00 Temperature 97.5 F L Pulse Rate 105 H 82 81 Respiratory 20 16 16 Rate Blood Pressure 157/93 139/89 154/97 O2 Sat by Pulse 98 100 100 Oximetry EKG Findings - EKG Comments: EKG Findings:: Sinus rhythm rate of 99 T-wave inversion in the inferior leads. [place] interval 180 QRS duration 92, QTC [address] segment elevation - EKG Results: EKG: interpreted by [facility] Medical Decision Making - Medical Decision Making Was pt. sent in by a medical professional or institution (, PA, PRINTED [employer]ARD [employer]ELS TRIMMER, urgent care, hospital, or fdc...) When possible be specific @ -[No] Did you speak to anyone other than the patient for history (EMS, parent, family, police, friend...)? What history was obtained from this source @ -[No] Did you review nursing and triage notes (agree or disagree)? Why? @ -[I reviewed and agree with nursing and triage notes] Were old charts reviewed (outside hosp., previous admission, EMS record, old EKG, old radiological studies, urgent care reports/EKG's, fdc records)? Report findings @ -[No old charts were reviewed] Differential Diagnosis (chest pain, altered mental status, abdominal pain women, abdominal pain men, vaginal bleeding, weakness, fever, dyspnea, syncope, headache, dizziness, GI bleed, back pain, seizure, CVA, palpatations, mental health, musculoskeletal)? @ -Differential Chest Pain: Stable Angina, Unstable Angina, STEMI, NSTEMI Aortic Dissection, Pneumothorax, Musculoskeletal, Esophageal Spasm GERD, Cholecystitis, Pancreatitis, Zoster, this is not meant to be an all-inclusive list. EKG interpreted by me (3pts min.). @ -[As above] X-rays interpreted by me (1pt min.). @ -Chest x-ray reviewed, trace effusion on the right, no other acute findings CT interpreted by me (1pt min.). @ -[None done] U/S interpreted by me (1pt. min.). @ -[None done] What testing was considered but not performed or refused? (CT, X-rays, U/S, labs)? Why? @ -[None] What meds were considered but not given or refused? Why? @ -[None] Did you discuss the management of the patient with other professionals (leoncio cruz i.eAnnmarie Ruffin, PA, PR[employer]MER, lab, RT, psych nurse, drug abuse social worker, sales representative printing, teacher, interface control officer, medical case worker)? Give summary @ -Case discussed with admitting physician Was smoking cessation discussed for >3mins.? @ -[No] Was critical care preformed (if so, how long)? @ -[No] Were there social determinants of health that impacted care today? How? (Homelessness, low income, unemployed, alcoholism, drug addiction, transportation, low edu. Level, literacy, decrease access to med. care, [place] [facility], rehab)? @ -[No] Was there de-escalation of care discussed even if they declined (Discuss DNR or withdrawal of care, Hospice)? DNR status @ -[No] What co-morbidities impacted this encounter? (DM, HTN, Smoking, COPD, CAD, Cancer, CVA, ARF, Chemo, Hep., AIDS, mental health diagnosis, sleep apnea, morbid obesity)? @ -[None] Was patient admitted / discharged? Hospital course, mention meds given and route, prescriptions, significant lab abnormalities, going to OR and other pertinent info. @ -51-year-old female presenting with chest pain with both typical and atypical features. EKG shows T-wave inversion in the inferior leads no ST segment elevation. Chest x-ray showing trace effusion. Laboratory testing is unremarkable including initial troponin. Patient will be kept in observation for serial cardiac enzymes, telemetry, cardiology consultation. Undiagnosed new problem with uncertain prognosis? @ -[No] Drug Therapy requiring intensive monitoring for toxicity (Heparin, Nitro, Insulin, Cardizem)? @ -[No] Were any procedures done? @ -[No] Diagnosis/symptom? @ -Chest pain Acute, or Chronic, or Acute on Chronic? @ -Acute Uncomplicated (without systemic symptoms) or Complicated (systemic symptoms)? @ -Uncomplicated Side effects of treatment? @ -[No] Exacerbation, Progression, or Severe Exacerbation? @ -[No] Poses a threat to life or bodily function? How? (Chest pain, [place], NH, pneumonia, PE, COPD, DKA, ARF, appy, cholecystitis, CVA, Diverticulitis, Homicidal, Suicidal, threat to staff... and all critical care pts) @ -Yes, concern for cardiac ischemia, arrhythmia - Lab Data Result diagrams: 05/12/22 22:08 05/12/22 22:08 Lab Results 05/12/22 05/12/22 05/12/22 Range/Units 22:08 22:08 22:08 WBC 8.5 (3.8-10.6) k/uL RBC 4.34 (3.80-5.40) m/uL Hgb 13.2 (11.4-16.0) gm/dL Hct 38.1 (34.0-46.0) % MCV 87.9 (80.0-100.0) fL MCH 30.4 (25.0-35.0) pg MCHC 34.6 (31.0-37.0) g/dL RDW 13.4 (11.5-15.5) % Plt Count 245 (150-450) k/uL MPV 7.0 Neutrophils % 60 % Lymphocytes % 31 % Monocytes % 6 % Eosinophils % 1 % Basophils % 0 % Neutrophils # 5.1 (1.3-7.7) k/uL Lymphocytes # 2.6 (1.0-4.8) k/uL Monocytes # 0.5 (0-1.0) k/uL Eosinophils # 0.1 (0-0.7) k/uL Basophils # 0.0 (0-0.2) k/uL PT 9.7 (9.0-12.0) sec INR 0.9 (<1.2) APTT 24.6 (22.0-30.0) sec Sodium 141 (137-145) mmol/L Potassium 4.1 (3.5-5.1) mmol/L Chloride 108 H (98-107) mmol/L Carbon Dioxide 25 (22-30) mmol/L Anion Gap 8 mmol/L BUN 21 H (7-17) mg/dL Creatinine 0.96 (0.52-1.04) mg/dL Est GFR (CKD-EPI)AfAm 78 (>60 ml/min/1.73 sqM) Est GFR (CKD-EPI)NonAf 68 (>60 ml/min/1.73 sqM) Glucose 112 H (74-99) mg/dL Calcium 9.5 (8.4-10.2) mg/dL Magnesium 2.2 (1.6-2.3) mg/dL Total Bilirubin 0.4 (0.2-1.3) mg/dL AST 27 (14-36) U/L ALT 34 (4-34) U/L Alkaline Phosphatase 84 (38-126) U/L Troponin I (0.000-0.034) ng/mL Total Protein 7.3 (6.3-8.2) g/dL Albumin 4.4 (3.5-5.0) g/dL Lipase 87 (23-300) U/L 05/12/22 Range/Units 22:08 WBC (3.8-10.6) k/uL RBC (3.80-5.40) m/uL Hgb (11.4-16.0) gm/dL Hct (34.0-46.0) % MCV (80.0-100.0) fL MCH (25.0-35.0) pg MCHC (31.0-37.0) g/dL RDW (11.5-15.5) % Plt Count (150-450) k/uL MPV Neutrophils % % Lymphocytes % % Monocytes % % Eosinophils % % Basophils % % Neutrophils # (1.3-7.7) k/uL Lymphocytes # (1.0-4.8) k/uL Monocytes # (0-1.0) k/uL Eosinophils # (0-0.7) k/uL Basophils # (0-0.2) k/uL PT (9.0-12.0) sec INR (<1.2) APTT (22.0-30.0) sec Sodium (137-145) mmol/L Potassium (3.5-5.1) mmol/L Chloride (98-107) mmol/L Carbon Dioxide (22-30) mmol/L Anion Gap mmol/L BUN (7-17) mg/dL Creatinine (0.52-1.04) mg/dL Est GFR (CKD-EPI)AfAm (>60 ml/min/1.73 sqM) Est GFR (CKD-EPI)NonAf (>60 ml/min/1.73 sqM) Glucose (74-99) mg/dL Calcium (8.4-10.2) mg/dL Magnesium (1.6-2.3) mg/dL Total Bilirubin (0.2-1.3) mg/dL AST (14-36) U/L ALT (4-34) U/L Alkaline Phosphatase (38-126) U/L Troponin I <0.012 (0.000-0.034) ng/mL Total Protein (6.3-8.2) g/dL Albumin (3.5-5.0) g/dL Lipase (23-300) U/L Disposition Clinical Impression: Chest pain Disposition: ADMITTED IP TO THIS [facility] Condition: Stable Is patient prescribed a controlled substance at d/c from ED?: No Referrals: Caleb Lee MD [Primary Care Provider] - 1-2 days Time of Disposition: 00:11
[2022-05-12 22:19] LABS: Basophils % (A) 0 %; Eosinophils # (A) 0.1 k/uL (0-0.7); Eosinophils % (A) 1 %; HCT 38.1 % (34.0-46.0); HGB 13.2 gm/dL (11.4-16.0); Lymphocytes # (A) 2.6 k/uL (1.0-4.8); Lymphocytes % (A) 31 %; MCH 30.4 pg (25.0-35.0); MCHC 34.6 g/dL (31.0-37.0); MCV 87.9 fL (80.0-100.0); Monocytes # (A) 0.5 k/uL (0-1.0); Monocytes % (A) 6 %; Neutrophils # (A) 5.1 k/uL (1.3-7.7); Neutrophils % (A) 60 %; Platelet Count 245 k/uL (150-450); RBC 4.34 m/uL (3.80-5.40); RDW 13.4 % (11.5-15.5); WBC 8.5 k/uL (3.8-10.6)
[2022-05-12 22:32] LABS: Potassium 4.1 mmol/L (3.5-5.1)
[2022-05-12 22:33] LABS: Albumin 4.4 g/dL (3.5-5.0); Calcium 9.5 mg/dL (8.4-10.2); Magnesium 2.2 mg/dL (1.6-2.3); Total Bilirubin 0.4 mg/dL (0.2-1.3); Total Protein 7.3 g/dL (6.3-8.2)
[2022-05-12 23:03] LABS: INR 0.9 (<1.2); Partial Thromboplastin Time 24.6 sec (22.0-30.0); Prothrombin Time 9.7 sec (9.0-12.0)
--- NOTE | 2022-05-12 23:21 | XR ---
EXAMINATION TYPE: XR chest 2V DATE OF EXAM: 05/12/2022 COMPARISON: NONE HISTORY: Chest pain TECHNIQUE: 2 views FINDINGS: Heart and mediastinum are normal. Lungs are clear. There are no hilar masses. There is mild pleural reaction at the right lung base. IMPRESSION: There is small right pleural effusion. Normal heart.
[2022-05-13] MEDS ORDERED: ASPIRIN 325 MG TAB PO STA (00:03)
[2022-05-13] MEDS ORDERED: ONDANSETRON 4 MG/2 ML VIAL IVP PRN (00:07)
[2022-05-13] MEDS ORDERED: ACETAMINOPHEN TAB 325 MG TAB PO PRN (00:07)
[2022-05-13] MEDS ORDERED: NALOXONE 0.4 MG/ML 1 ML VIAL IV PRN (00:07)
[2022-05-13] MEDS ORDERED: CALCIUM CARBONATE 500 MG CHEWABLE PO PRN (04:29)
[2022-05-13] MEDS ORDERED: traZODone HCL 50 MG TAB PO PRN (04:29)
[2022-05-13 07:53] VITALS: BP 143/94; PULSE 75; RESP 18; TEMP 97.8
[2022-05-13] MEDS ORDERED: PANTOPRAZOLE 40 MG/10 ML VIAL IV SCH (09:00)
--- NOTE | 2022-05-13 09:24 | P.CRDCN ---
History of Present Illness Consult date: 05/13/22 History of present illness: HISTORY OF PRESENT ILLNESS: This is a 51 year old female with a past medical history significant for anxiety. 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 We have been asked to see the patient in consultation for chest pain. Patient examined at the bedside. Patient states she has been having heartburn for the past week. She states this is unusual because she usually does not get heartburn. She was taking some of her husbands GERD medication with little improvement. She states that she has also been experiencing pain in her right arm and headache for the past few days. She denies any nausea or vomiting. She reports getting a little bit diaphoretic with these episodes. She states each episode will last for 2-3 hours. She states if she gets up and moves around the pain seems to help somewhat. The patient did report improvement in her pain when she received Protonix in the emergency room. She denies any chest pain at the time of examination. Patient is a nonsmoker. She denies any alcohol use. Denies any drug use including marijuana. She reports a family history of coronary artery disease and states her brother has required stenting in the past. * EKG reveals sinus mechanism with nonspecific ST-T wave changes. No signs of acute ischemia. * Chest xray small right pleural effusion. Normal heart. * Laboratory data: WBC 8.5. Hemoglobin 13.2. Platelet count 245. Sodium 141. Potassium 4.1. BUN 21. Creatinine 0.96. Troponin negative 3 * Current home cardiac medications include none REVIEW OF SYSTEMS: At the time of my exam: CONSTITUTIONAL: Denies fever or chills. HEENT: Denies blurred vision, vision changes, or eye pain. Denies hemoptysis CARDIOVASCULAR: Denies chest pain. Denies orthopnea. Denies PND. Denies palpitations RESPIRATORY: Denies shortness of breath. GASTROINTESTINAL: Denies abdominal pain. Denies nausea or vomiting. HEMATOLOGIC: Denies bleeding disorders. GENITOURINARY: Denies any blood in urine. SKIN: Denies pruitis. Denies rash. PHYSICAL EXAM: VITAL SIGNS: Reviewed. GENERAL: Well-developed in no acute distress. HEENT: Head is normocephalic. Pupils are equal, round. Sclerae anicteric. Mucous membranes of the mouth are moist. Neck supple. No JVD or thyromegaly LUNGS: Respirations even and unlabored. Lungs essentially clear to auscultation bilaterally. HEART: Regular rate and rhythm. S1 and S2 heard. ABDOMEN: Soft. Nondistended. Nontender. EXTREMITIES: Normal range of motion. No clubbing or cyanosis. Peripheral pulses intact. No lower extremity edema NEUROLOGIC: Awake and alert. Oriented x 3. ASSESSMENT: Heartburn with right arm pain, r/o anginal equivalent, troponins negative x 3 Anxiety History of diverticulitis Family history of CAD PLAN: An acute coronary event has been ruled out Obtain 2-D echo to assess cardiac structure and function Obtain lipid panel and hemoglobin A1c Patient to undergo stress echo today. If negative, she may be discharged home from a cardiac standpoint Further recommendations pending patient's course Nurse practitioner note has been reviewed by physician. Signing provider agrees with the documented findings, assessment, and plan of care. Past Medical History Additional Past Medical History / Comment(s): diverticulitis, ovarian cyst History of Any Multi-Drug Resistant Organisms: None Reported Past Surgical History: Tubal Ligation, Uterine Ablation Past Anesthesia/Blood Transfusion Reactions: Motion Sickness Past Psychological History: Anxiety Smoking Status: Never smoker Past Alcohol Use History: None Reported Past Drug Use History: None Reported - Past Family History Father Family Medical History: Cancer Additional Family Medical History / Comment(s): esophageal cancer Mother Family Medical History: No Reported History Additional Family Medical History / Comment(s): maternal grandma colon cancer Medications and Allergies Home Medications Medication Instructions Recorded Confirmed Type ALPRAZolam [Xanax] 0.25 mg PO TID PRN 05/13/22 05/13/22 History Phentermine HCl 37.5 mg PO DAILY 05/13/22 05/13/22 History traZODone HCL [Desyrel] 50 mg PO HS 05/13/22 05/13/22 History Allergies Allergy/AdvReac Type Severity Reaction Status Date / Time amoxicillin [Amoxicillin] Allergy Rash/Hives Verified 05/13/22 07:56 on entire body Physical Exam Vitals: Vital Signs Temp Pulse Pulse Resp BP BP Pulse Ox 05/13/22 01:18 98.6 F 85 17 159/98 98 05/13/22 00:24 84 16 147/95 99 05/13/22 00:00 81 16 154/97 100 05/12/22 23:00 82 16 139/89 100 05/12/22 21:18 97.5 F L 105 H 20 157/93 98 Intake and Output 05/12/22 05/13/22 05/13/22 22:59 06:59 14:59 Other: # Voids 1 Weight 81.647 kg 81.647 kg Results 05/12/22 22:08 05/12/22 22:08 Cardiac Enzymes 05/12/22 05/12/22 05/13/22 Range/Units 22:08 22:08 03:15 AST 27 (14-36) U/L Troponin I <0.012 <0.012 (0.000-0.034) ng/mL 05/13/22 Range/Units 06:21 AST (14-36) U/L Troponin I <0.012 (0.000-0.034) ng/mL Coagulation 05/12/22 Range/Units 22:08 PT 9.7 (9.0-12.0) sec APTT 24.6 (22.0-30.0) sec CBC 05/12/22 Range/Units 22:08 WBC 8.5 (3.8-10.6) k/uL RBC 4.34 (3.80-5.40) m/uL Hgb 13.2 (11.4-16.0) gm/dL Hct 38.1 (34.0-46.0) % Plt Count 245 (150-450) k/uL Comprehensive Metabolic Panel 05/12/22 Range/Units 22:08 Sodium 141 (137-145) mmol/L Potassium 4.1 (3.5-5.1) mmol/L Chloride 108 H (98-107) mmol/L Carbon Dioxide 25 (22-30) mmol/L BUN 21 H (7-17) mg/dL Creatinine 0.96 (0.52-1.04) mg/dL Glucose 112 H (74-99) mg/dL Calcium 9.5 (8.4-10.2) mg/dL AST 27 (14-36) U/L ALT 34 (4-34) U/L Alkaline Phosphatase 84 (38-126) U/L Total Protein 7.3 (6.3-8.2) g/dL Albumin 4.4 (3.5-5.0) g/dL Current Medications Generic Name Dose Route Start Last Admin Trade Name Freq PRN Reason Stop Dose Admin Acetaminophen 650 mg 05/13/22 00:07 Acetaminophen Tab 325 Mg Tab PO Q6HR PRN Mild Pain or Fever > 100.5 Calcium Carbonate/Glycine 1,000 mg 05/13/22 04:29 05/13/22 04:43 Calcium Carbonate 500 Mg Chewable PO 1,000 mg QID PRN Administration Heartburn Naloxone HCl 0.2 mg 05/13/22 00:07 Naloxone 0.4 Mg/Ml 1 Ml Vial IV Q2M PRN Opioid Reversal Ondansetron HCl 4 mg 05/13/22 00:07 Ondansetron 4 Mg/2 Ml Vial IVP Q8HR PRN Nausea And Vomiting Pantoprazole Sodium 40 mg 05/13/22 09:00 Pantoprazole 40 Mg/10 Ml Vial IV DAILY ALEN Trazodone HCl 50 mg 05/13/22 04:29 Trazodone Hcl 50 Mg Tab PO HS PRN Insomnia Intake and Output 05/12/22 05/13/22 05/13/22 22:59 06:59 14:59 Other: # Voids 1 Weight 81.647 kg 81.647 kg 05/12/22 22:08 05/12/22 22:08
[2022-05-13] MEDS ORDERED: ALPRAZolam 0.25 MG TAB PO PRN (10:26)
--- NOTE | 2022-05-13 11:01 | P.HPIM ---
History of Present Illness H&P Date: 05/13/22 Chief Complaint: Midepigastric chest pressure/heartburn History and Physical and Discharge Summary: This is a pleasant 51-year-old female with past medical history of diverticulitis, motion sickness, anxiety, obesity-Adipex, presented to the ER w ith complaints of fluctuating heartburn over the last 2-3 weeks with duration increasing to 2-3 hours. Family history, brother with CAD and cardiac stents, father had esophageal CA/nicotine dependence. Reports midepigastric burning that continued worsening, waking her up from sleep, accompanied by anxiety, headache, shortness of breath, diaphoresis and right arm pain. Attempted taking her 's omeprazole with some relief. Denies nausea vomiting or diarrhea. Reports her IV push on Protonix and Tums decreased her symptoms.On exam midsternal/midepigastric pain nonreproducible. Denies alcohol or nicotine abuse. EKGs reporting sinus rhythm-reviewed by cardiology, troponins negative 3. Afebrile, normal WBC. Hematology, coagulation panels unremarkable. Electrolytes within normal limits BUN 21, creatinine 0.96. Chest x-ray reporting small right pleural effusion. Maintaining O2 sats in the high 90s on room air. Review of Systems ROS Statement: Those systems with pertinent positive or pertinent negative responses have been documented in the HPI. ROS Other: All systems not noted in ROS Statement are negative. Past Medical History Additional Past Medical History / Comment(s): diverticulitis, ovarian cyst History of Any Multi-Drug Resistant Organisms: None Reported Past Surgical History: Tubal Ligation, Uterine Ablation Past Anesthesia/Blood Transfusion Reactions: Motion Sickness Past Psychological History: Anxiety Smoking Status: Never smoker Past Alcohol Use History: None Reported Past Drug Use History: None Reported - Past Family History Father Family Medical History: Cancer Additional Family Medical History / Comment(s): esophageal cancer Mother Family Medical History: No Reported History Additional Family Medical History / Comment(s): maternal grandma colon cancer Medications and Allergies Home Medications Medication Instructions Recorded Confirmed Type ALPRAZolam [Xanax] 0.25 mg PO TID PRN 05/13/22 05/13/22 History Phentermine HCl 37.5 mg PO DAILY 05/13/22 05/13/22 History traZODone HCL [Desyrel] 50 mg PO HS 05/13/22 05/13/22 History Allergies Allergy/AdvReac Type Severity Reaction Status Date / Time amoxicillin [Amoxicillin] Allergy Rash/Hives Verified 05/13/22 07:56 on entire body Physical Exam Vitals: Vital Signs Temp Pulse Pulse Resp BP BP Pulse Ox 05/13/22 08:26 97 05/13/22 07:30 97.8 F 75 18 143/94 97 05/13/22 01:18 98.6 F 85 17 159/98 98 05/13/22 00:24 84 16 147/95 99 05/13/22 00:00 81 16 154/97 100 05/12/22 23:00 82 16 139/89 100 05/12/22 21:18 97.5 F L 105 H 20 157/93 98 Intake and Output 05/12/22 05/13/22 05/13/22 22:59 06:59 14:59 Other: # Voids 1 Weight 81.647 kg 81.647 kg PHYSICAL EXAM: VITAL SIGNS: [As above] GENERAL: Pleasant, obese, 51-year-old female sitting up in bed, no acute distress HEENT: Conjunctivae normal. eyes normal. NECK: Supple, No JVD. No thyroid enlargement. No LNs CARDIOVASCULAR: S1, S2 regular. No murmur RESPIRATION: Breath sounds diminished in the bases. No rhonchi or crackles. No bronchial breathing. ABDOMEN: Soft, nondistended, nontender . No guarding. no masses palpable. No ascites, No hepatosplenomegaly.Bowel sounds heard. LEGS: No edema. no swelling PSYCHIATRY: Alert and oriented X3, mood and affect normal. NERVOUS SYSTEM: Cranial N 2-12 grossly normal.No focal deficits.Strength and sensation grossly intact. Skin: Warm and dry, no rash Results CBC & Chem 7: 05/12/22 22:08 05/12/22 22:08 Labs: Abnormal Lab Results - Last 24 Hours (Table) 05/12/22 Range/Units 22:08 Chloride 108 H (98-107) mmol/L BUN 21 H (7-17) mg/dL Glucose 112 H (74-99) mg/dL Assessment and Plan Assessment: Chest pain; midepigastric heartburn with right arm pain, troponin is negative 3, in a patient with family history of CAD Possible gastroesophageal reflux disease. Anxiety History of diverticulitis Obesity, BMI 31.9 Plan: Continue on current medication regime ,monitoring and symptomatic treatment. Lipid panel, A1c pending.Evaluated by cardiology with recommendations noted appreciated. Patient will be discharged home pending Stress echo results, final DC recommendations and clearance per cardiology. Discharge Medication List ALPRAZolam [Xanax] 0.25 mg PO TID PRN 05/13/22 [History] Omeprazole 20 mg PO DIRECTED #42 cap 05/13/22 [Rx] Phentermine HCl 37.5 mg PO DAILY 05/13/22 [History] traZODone HCL [Desyrel] 50 mg PO HS 05/13/22 [History] The impression and plan of care has been dictated as directed. : I performed a history and examination of this patient, discussed the same with the dictator. I agree with the dictator's note ,documented as a scribe. Any additional findings or plans will be noted.
[2022-05-13 11:03] LABS: Chol/HDL Ratio 3.14 Ratio; LDL Cholesterol,Calculated 96.4 mg/dL (0.0-131.0); VLDL Calculation 16.66 mg/dL (5.00-40.00)
--- NOTE | 2022-05-13 11:30 | CA ---
Transthoracic Echo Report Name: Kerry Johns Age: 51 Gender: F : 1970 Exam Date: 05/13/2022 10:12 Exam Location: [facility] Ht (in): 63 Wt (lb): 180 Ordering Physician: Priscila Ruiz Attending/Referring Phys: [id number], Sara Manufacturing Advisor Negro Ashby RDCS Procedure CPT: Indications: LV function, chest pain Cardiac Hx: Technical Quality: Fair Contrast 1: Total Dose (mL): Contrast 2: Total Dose (mL): MEASUREMENTS (Male / Female) Normal Values 2D ECHO LV Diastolic Diameter PLAX 3.3 cm 4.2 - 5.9 / 3.9 - 5.3 cm LV Systolic Diameter PLAX 2.1 cm LV Fractional Shortening PLAX 35.8 % IVS Diastolic Thickness 1.2 cm 0.6 - 1.0 / 0.6 - 0.9 cm IVS Systolic Thickness 1.5 cm LVPW Diastolic Thickness 1.1 cm 0.6 - 1.0 / 0.6 - 0.9 cm LVPW Systolic Thickness 1.5 cm LV Relative Wall Thickness 0.7 LVOT Diameter 1.9 cm LA Systolic Diameter LX 2.8 cm 3.0 - 4.0 / 2.7 - 3.8 cm LV Diastolic Volume MOD BP 59.6 cm??? 67 - 155 / 56 - 104 cm??? LV Systolic Volume MOD BP 23.5 cm??? 22 - 58 / 19 - 49 cm??? LV Ejection Fraction MOD BP 60.5 % >= 55 % LV Stroke Volume MOD BP 36.1 cm??? LV Diastolic Volume MOD 4C 47.6 cm??? LV Systolic Volume MOD 4C 19.5 cm??? LV Ejection Fraction MOD 4C 59.0 % LV Stroke Volume MOD 4C 28.1 cm??? LV Diastolic Length 4C 6.8 cm LV Systolic Length 4C 5.8 cm LV Diastolic Volume MOD 2C 70.9 cm??? LV Systolic Volume MOD 2C 27.1 cm??? LV Ejection Fraction MOD 2C 61.8 % LV Stroke Volume MOD 2C 43.8 cm??? LV Diastolic Length 2C 7.2 cm LV Systolic Length 2C 5.5 cm Ascending Aorta Diameter 2.7 cm M-MODE Aortic Root Diameter MM 3.3 cm LA Systolic Diameter MM 3.1 cm LA Ao Ratio MM 0.9 AV Cusp Separation MM 1.6 cm DOPPLER AV Peak Velocity 124.9 cm/s AV Peak Gradient 6.2 mmHg MV Deceleration [place] 438.7 cm/s??? Mitral E Point Velocity 45.0 cm/s Mitral A Point Velocity 73.9 cm/s Mitral E to A Ratio 0.6 MV Deceleration Time 102.7 ms MV E' Velocity 4.1 cm/s Mitral E to MV E' Ratio 11.0 TR Peak Velocity 224.2 cm/s TR Peak Gradient 20.1 mmHg Right Ventricular Systolic Press 29.1 mmHg PV Peak Velocity 102.5 cm/s PV Peak Gradient 4.2 mmHg FINDINGS Left Ventricle Left ventricular ejection fraction is estimated at 60-65%. Borderline left ventricular hypertrophy. Grade 1 diastolic dysfunction. Normal basal systolic function. Right Ventricle Normal right ventricular size and function. RVSP-29 mm Hg. Right Atrium Mild right atrial dilatation. Left Atrium Normal left atrial size. Mitral Valve Structurally normal mitral valve. Trace mitral regurgitation. Aortic Valve Trileaflet aortic valve. Diffuse thickening (sclerosis) of the aortic valve cusps without reduced excursion. Tricuspid Valve Mild tricuspid regurgitation. Pulmonic Valve Trace to mild pulmonic regurgitation. Pericardium Normal pericardium. No pericardial effusion. Aorta Normal size aortic root and proximal ascending aorta. CONCLUSIONS Left ventricular ejection fraction 60-65% RVSP 29 Trace mitral regurgitation Mild tricuspid regurgitation No pericardial effusion Previewed by: Dr. Gianni Nelson DO (Electronically Signed) Final Date: 13 May 2022 11:29
--- NOTE | 2022-05-13 12:14 | CA ---
Stress Echo Report Kerry Johns Age: 51 Gender: F : 1970 Exam Date: 05/13/2022 09:48 Exam Location: [facility] Ht (in): 63 Wt (lb): 180 Ordering Physician: Priscila Ruiz Referring Physician: [id number] Drawer Waxer: Shruti Ribeiro RDCS Technologist Procedure CPT: Indication: Chest Pain ICD-9 Codes: Rhythm: Patient History: Family history, Dyspnea/SOB Cardiac Medications: NONE Medications in past 24 hours: Contrast: Stress Results Protocol: Peter Total dose(mL): Exercise Duration (min:sec): [address] Depression (mm): Angina Score: Beckman Score: METS: 8.5 Resting HR: 99 Resting BP: 144 / 96 Peak HR: 157 Peak BP: 166 / 94 Max Predicted HR: 167 94 % Max Predicted HR Target HR: 142 Double Product: 36833 Stress Summary: The patient's target heart rate was achieved BP Response: Normal Reason for Termination: Reached target heart rate or work-load Cardiac Symptoms: Test terminated after reaching target heart rate (85% max predicted) ECG Analysis Resting ECG: Stress ECG: Arrhythmia: Echo Analysis Resting Echo: Peak Echo Analysis: MEASUREMENTS (Male/Female) Normal Values CONCLUSIONS Patient underwent exercise stress echo with a Peter protocol treadmill stress test. Patient exercised into Stage 3 for a total of 7 minutes reaching a total of 8.5 METS. Patient's maximum heart rate was 157 which represented 94% age-predicted maximum heart rate. Stress EKG portion: At baseline patient's EKG showed normal sinus rhythm, normal axis, no significant ST or T wave abnormalities. At peak exercise, EKG showed no significant change from baseline. Stress echo portion: 2-D echocardiogram was performed in the parasternal long, personal short, apical 2 and apical four-chamber views at rest, peak exercise and in recovery. At baseline, echocardiogram showed left ventricular ejection fraction 55 % without wall motion abnormalities. With peak exercise, echocardiogram shows improvement in left ventricular ejection fraction, increase contractility, decrease in left ventricular end systolic dimension without wall motion abnormalities consistent with a normal response to exercise. Conclusions: 1. Normal EKG and echo response to exercise without evidence of inducible ischemia. 2. Fair exercise capacity. Dr. Gianni Nelson DO (Electronically Signed) Final Date: 13 May 2022 12:13
[2022-05-13] MEDS ORDERED: traZODone HCL 50 MG TAB PO SCH (21:00)
== END 2022-05-13 13:53 | disposition home or self-care (01) ==
LOC: EC 21:17 → 6NMEDSUR 05-13 00:07 → UNDODISOB 05-13 13:26
PROVIDERS: ADMIT Family Medicine; ATTEND Family Medicine
DX: R07.9 Chest pain, unspecified (principal); R12 Heartburn; M79.601 Pain in right arm; F41.9 Anxiety disorder, unspecified; E66.9 Obesity, unspecified; Z68.31 Body mass index [BMI] 31.0-31.9, adult; Z87.19 Personal history of other diseases of the digestive system; Z79.899 Other long term (current) drug therapy; Z88.0 Allergy status to penicillin; Z80.0 Family history of malignant neoplasm of digestive organs; Z82.49 Family history of ischemic heart disease and other diseases of the circulatory system
CPT/HCPCS: 96376; 96374; 99285; 36415; 94760; 93005; 93306; 93351; 80061; 80053; 83690; 83735; 84484 ×2; 85025; 85610; 85730; 83036; 71046; G0378; C9113 ×2; 96375

== ENCOUNTER → 2023-02-10 | Outpatient (CLI) | payer MEDICAID ==
--- NOTE | 2023-02-10 10:12 | MM ---
Reason for Exam: Screening (asymptomatic). Last mammogram was performed 1 year(s) and 1 month(s) ago. Patient History: Menarche at age 9. First Full-Term at age 23. Postmenopausal. Progesterone, from age 52 until age 52. Hormonal Contraceptives for 4 years from age 19 until age 23. Excisional Biopsy on the Left side. Risk Values: Nicol 5 year model risk: 1.6%. NCI Lifetime model risk: 11.8%. Prior Study Comparison: 01/18/2020 Bilateral Screening Mammogram, [facility]. 02/05/2021 Bilateral Screening Mammogram, [facility]. 12/24/2021 Bilateral MG 3D diag mammo w/cad [facility], [facility]. Tissue Density: The breast tissue is almost entirely fat. Findings: Analyzed By CAD. There is no suspicious group of microcalcifications or new suspicious mass. Benign-appearing calcifications right breast. Overall Assessment: Benign, BI-RAD 2 Management: Screening Mammogram of both breasts in [address] [facility] will attempt to contact patient to return for supplemental views and ultrasound if indicated. Patient should continue monthly self-breast exams. A clinical breast exam by your physician is recommended on an annual basis. This exam should not preclude additional follow-up of suspicious palpable abnormalities. Note on Nicol scores and lifetime risk: 1. A Nicol score greater than 3% is considered moderate risk. If this is the case, consider specialist referral to assess eligibility for a risk reducing agent. 2. If overall lifetime risk for the development of breast cancer is 20% or higher, the patient may qualify for future screening with alternating mammogram and breast MRI. Electronically signed and approved by: Earle Eagle DO
== END | disposition home or self-care (01) ==
LOC: RADMAMWWP 07:50
PROVIDERS: ATTEND Obstetrics & Gynecology
DX: Z12.31 Encounter for screening mammogram for malignant neoplasm of breast (principal); Z78.0 Asymptomatic menopausal state
CPT/HCPCS: 77063; 77067

== ENCOUNTER → 2023-04-15 | Outpatient (CLI) | payer MEDICAID ==
[2023-04-15 16:07] LABS: HCT 41.6 % (37.2-50.0); HGB 13.2 g/dL (12.0-17.0); MCH 28.8 pg (27.0-32.0); MCHC 31.7 g/dL (32.0-37.0); MCV 90.6 FL (80.0-97.0); Mean Platelet Volume 9.5 FL (9.5-12.2); NRBC Per 100 WBC 0 X 10*3/uL (0.00-0.01); Platelet Count 321 X 10*3/uL (140-440); RBC 4.59 X 10*6/uL (4.10-5.60); RDW 13.2 % (11.5-14.5); WBC 8.29 X 10*3/uL (4.50-10.00)
[2023-04-15 16:33] LABS: ALT 27 U/L (8-49); AST 22 U/L (13-35); Albumin 4.6 g/dL (3.8-4.9); Albumin/Globulin Ratio 1.64 Ratio (1.60-3.17); Alkaline Phosphatase 55 U/L (41-126); BUN/Creat Ratio 21.62 Ratio (12.00-20.00); Blood Urea Nitrogen 17.3 mg/dL (9.0-27.0); Calcium 10.3 mg/dL (8.7-10.3); Carbon Dioxide 26.4 mmol/L (21.6-31.8); Chloride 104 mmol/L (96-109); Chol/HDL Ratio 2.87 Ratio; Globulin 2.8 g/dL (1.6-3.3); Glucose 91 mg/dL (70-110); LDL Cholesterol,Calculated 101.1 mg/dL (0.0-131.0); Magnesium 2.2 mg/dL (1.5-2.4); Potassium 4.7 mmol/L (3.5-5.5); Sodium 140 mmol/L (135-145); Total Bilirubin 0.4 mg/dL (0.3-1.2); Total Protein 7.4 g/dL (6.2-8.2); VLDL Calculation 19.48 mg/dL (5.00-40.00)
== END | disposition home or self-care (01) ==
LOC: LABWHC1 09:18
PROVIDERS: ATTEND Family Medicine
DX: F41.1 Generalized anxiety disorder (principal); E55.9 Vitamin D deficiency, unspecified; I10 Essential (primary) hypertension
CPT/HCPCS: 36415; 80053; 80061; 82306; 82607; 82746; 83735; 84443; 85027

== ENCOUNTER → 2024-03-16 | Outpatient (CLI) | payer MEDICAID ==
--- NOTE | 2024-03-16 08:18 | MM ---
Reason for Exam: Screening (asymptomatic). Last mammogram was performed 1 year(s) and 1 month(s) ago. Patient History: Menarche at age 9. First Full-Term at age 23. Postmenopausal. Progesterone, from age 52 until age 52. Hormonal Contraceptives for 4 years from age 19 until age 23. Excisional Biopsy on the Left side. Risk Values: Nicol 5 year model risk: 1.7%. NCI Lifetime model risk: 11.6%. Prior Study Comparison: 02/05/2021 Bilateral Screening Mammogram, [facility]. 12/24/2021 Bilateral MG 3D diag mammo w/cad [facility], [facility]. 02/10/2023 Bilateral MG 3D screening mammo w/cad, [facility]. Tissue Density: The breasts are almost entirely fatty. Findings: Analyzed By CAD. Right breast: There is no suspicious group of microcalcifications or new suspicious mass. Benign-appearing calcifications right breast. Left breast: There is no suspicious group of microcalcifications or new suspicious mass. Overall Assessment: Negative, BI-RAD 1 Management: Screening Mammogram of both breasts in [address] [facility] will attempt to contact patient to return for supplemental views and ultrasound if indicated. Patient should continue monthly self-breast exams. A clinical breast exam by your physician is recommended on an annual basis. This exam should not preclude additional follow-up of suspicious palpable abnormalities. Note on Nicol scores and lifetime risk: 1. A Nicol score greater than 3% is considered moderate risk. If this is the case, consider specialist referral to assess eligibility for a risk reducing agent. 2. If overall lifetime risk for the development of breast cancer is 20% or higher, the patient may qualify for future screening with alternating mammogram and breast MRI. [facility], , 03/16/2024 8:15 AM. Electronically signed and approved by: Earle Eagle DO
== END | disposition home or self-care (01) ==
LOC: RADMAMWWP 07:35
PROVIDERS: ATTEND Obstetrics & Gynecology
DX: Z12.31 Encounter for screening mammogram for malignant neoplasm of breast (principal); R92.313 Mammographic fatty tissue density, bilateral breasts; Z78.0 Asymptomatic menopausal state
CPT/HCPCS: 77063; 77067

== ENCOUNTER → 2024-09-04 | Outpatient (CLI) | payer MEDICAID ==
[2024-09-04 20:25] LABS: ALT 25 U/L (8-49); AST 24 U/L (13-35); Albumin 4.6 g/dL (3.8-4.9); Albumin/Globulin Ratio 1.70 Ratio (1.60-3.17); Alkaline Phosphatase 65 U/L (41-126); Anion Gap 12.10 mmol/L (4.00-12.00); BUN/Creat Ratio 24.50 Ratio (12.00-20.00); Blood Urea Nitrogen 19.6 mg/dL (9.0-27.0); Calcium 9.7 mg/dL (8.7-10.3); Carbon Dioxide 22.9 mmol/L (21.6-31.8); Chloride 104 mmol/L (96-109); Cholesterol 199.00 mg/dL (0.00-200.00); Globulin 2.7 g/dL (1.6-3.3); Glucose 94 mg/dL (70-110); HDL Cholesterol 55.30 mg/dL (40.00-60.00); LDL Cholesterol,Calculated 112.5 mg/dL (0.0-131.0); Potassium 4.8 mmol/L (3.5-5.5); Sodium 139 mmol/L (135-145); Total Protein 7.3 g/dL (6.2-8.2); Triglycerides 156.00 mg/dL (0.00-149.00); VLDL Calculation 31.20 mg/dL (5.00-40.00)
[2024-09-05 02:14] LABS: HCT 41.7 % (37.2-50.0); HGB 12.8 g/dL (12.0-17.0); MCH 28.6 pg (27.0-32.0); MCHC 30.7 g/dL (32.0-37.0); MCV 93.1 FL (80.0-97.0); NRBC Per 100 WBC 0 X 10*3/uL (0.00-0.01); Platelet Count 323 X 10*3/uL (140-440); RBC 4.48 X 10*6/uL (4.10-5.60); RDW 12.6 % (11.5-14.5); WBC 8.48 X 10*3/uL (4.50-10.00)
== END | disposition home or self-care (01) ==
LOC: LABWHC1 15:14
DX: Z13.220 Encounter for screening for lipoid disorders (principal); E66.811 Obesity, class 1; F51.04 Psychophysiologic insomnia; F41.1 Generalized anxiety disorder; K73.0 Chronic persistent hepatitis, not elsewhere classified; R79.89 Other specified abnormal findings of blood chemistry; Z68.31 Body mass index [BMI] 31.0-31.9, adult
CPT/HCPCS: 36415; 80053; 80061; 82306; 83036; 84443; 85027